=== PATIENT | female | born 1945 ===

== ENCOUNTER 2016-08-06 10:51 | Day surgery (SDC) | payer MEDICARE ==
[2016-08-06 11:21] VITALS: BP 120/58
[2016-08-06] MEDS ORDERED: NEOFRIN OD ONE (13:35)
[2016-08-06] MEDS ORDERED: MYDRIACYL 1% OD ONE (13:35)
[2016-08-06] MEDS ORDERED: IOPIDINE OD ONE (13:35)
== END 2016-08-06 13:05 | disposition home or self-care (01) ==
LOC: OR 10:51
PROVIDERS: ATTEND Specialist
DX: E11.36 Type 2 diabetes mellitus with diabetic cataract (principal); H26.491 Other secondary cataract, right eye; I10 Essential (primary) hypertension; E78.00 Pure hypercholesterolemia, unspecified; E03.9 Hypothyroidism, unspecified; Z90.710 Acquired absence of both cervix and uterus
CPT/HCPCS: 82962